=== PATIENT | female | born 1975 | race Caucasian/White ===

== ENCOUNTER 2017-10-30 17:44 | Emergency (ER) | payer BC, OTHER ==
[~2017-10-30] VITALS: Ht 170.2 cm; Wt 101.6 kg
[2017-10-30 17:53] VITALS: BP 128/80
[2017-10-30] MEDS ORDERED: KETOROLAC 30 MG/1 ML IM ONE (18:30)
[2017-10-30] MEDS ORDERED: KETOROLAC 30 MG/1 ML ONE (18:39)
[2017-10-30] MEDS ORDERED: PLEASE ENTER ALLERGIES MC SCH (19:00)
== END 2017-10-30 18:55 | disposition home or self-care (01) ==
LOC: ED 18:49
DX: M25.531 Pain in right wrist (principal); G89.11 Acute pain due to trauma; Z87.891 Personal history of nicotine dependence
CPT/HCPCS: 73090; 73110; 96372; 99284; J1885